=== PATIENT | male | born 1950 | race Asian ===

== ENCOUNTER → 2016-10-02 | Outpatient (CLI) | payer OTHER ==
[~2016-10-02] MED LIST: ACAR50TA11 PO; AMLO-512 PO; CARV6 PO; CLON.1 PO; GLIP5 PO; HYDR50 PO; LOSA50TA37 PO; METF500T4 PO; SITA25 PO
== END | disposition home or self-care (01) ==
LOC: RADMN 08:44
PROVIDERS: ATTEND Internal Medicine
DX: J98.11 Atelectasis (principal); J98.4 Other disorders of lung; I25.10 Atherosclerotic heart disease of native coronary artery without angina pectoris; I70.0 Atherosclerosis of aorta; N20.0 Calculus of kidney; K44.9 Diaphragmatic hernia without obstruction or gangrene; N26.1 Atrophy of kidney (terminal)
CPT/HCPCS: 71250